=== PATIENT | female | born 1955 | race Caucasian/White ===

== ENCOUNTER → 2019-07-30 | Outpatient (CLI) | payer BC ==
[~2019-07-30] MED LIST: AZELASTINE137 MCG/0.; BUDE6HFA; CEPH500 PO; COMBIVENT RESPIM4 GM IH; Flonase 0.05% N16 GM; HYDACE5 PO; Hydromet Syrup473 ML PO; LORPSEER24 PO; MONTELUKAST SOD10 MG PO; OMEP40CA12 PO; PRED20 PO; VAGIFEM10 MCG; VITAMIN D31000 UNIT PO; Ventolin Soln3 ML INH
[2019-07-30 12:52] LABS: BASOPHILS ABSOLUTE AUTO 0.07 K/mm3 (0.00-0.23); BASOPHILS PERCENT AUTO 1 % (0-2); EOSINOPHILS ABSOLUTE AUTO 0.07 K/mm3 (0.00-0.68); EOSINOPHILS PERCENT AUTO 1 % (0-6); Hematocrit 43.4 % (33.0-51.0); Hemoglobin 14.6 g/dL (11.5-16.0); IMMATURE GRAN ABSOLUTE AUTO 0.03 K/mm3 (0.00-0.10); IMMATURE GRAN PERCENT AUTO 1 % (0-1); LYMPHOCYTES ABSOLUTE AUTO 1.67 K/mm3 (0.84-5.20); LYMPHOCYTES PERCENT AUTO 26 % (21-46); MONOCYTES ABSOLUTE AUTO 0.48 K/mm3 (0.16-1.47); MONOCYTES PERCENT AUTO 8 % (4-13); Mean Corpuscular HGB 31.3 pg (26.0-34.0); Mean Corpuscular HGB Conc 33.6 g/dL (31.5-36.5); Mean Corpuscular Volume 93 fL (80-100); Mean Platelet Volume 11.3 fL (9.1-12.4); NEUTROPHILS ABSOLUTE AUTO 4.09 K/mm3 (1.96-9.15); NEUTROPHILS PERCENT AUTO 64 % (41-73); Platelet Count 147 K/mm3 (150-400); RDW Coefficient Variation 12.2 % (11.7-14.2); RDW Standard Deviation 41.7 fL (35.1-46.3); Red Blood Cell Count 4.66 M/mm3 (3.80-5.20); White Blood Cell Count 6.41 K/mm3 (4.00-11.30)
[2019-07-30 13:26] LABS: Alanine Aminotransfer (ALT/SGP 20 U/L (12-78); Albumin, Blood 3.9 g/dL (3.4-5.0); Albumin/Globulin Ratio 1.1 (0.8-1.8); Alk Phos 58 U/L (50-136); Anion Gap 2 mmol/L (6-16); Aspartate Aminotrans (AST/SGOT 16 U/L (12-37); Bilirubin, Total 0.5 mg/dL (0.1-1.0); Blood Urea Nitrogen 15 mg/dL (8-24); Bun/Creatinine Ratio 17.3 (12.0-20.0); CO2, Blood 27 mmol/L (21-32); Calcium, Blood 8.5 mg/dL (8.5-10.1); Chloride, Blood 111 mmol/L (98-108); Creatinine, Blood 0.87 mg/dL (0.40-1.00); Globulin, Blood 3.5 g/dL (2.2-4.0); Glomerular Filtration Rate >60 (60-); Glucose, Blood 105 mg/dL (70-99); Potassium, Blood 3.9 mmol/L (3.5-5.5); Sodium, Blood 140 mmol/L (136-145); Total Protein, Blood 7.4 g/dL (6.4-8.2); Troponin I <0.015 ng/mL (0.000-0.040)
== END ==
LOC: LAB EV 12:48 → LAB SHORT 12:48
PROVIDERS: Emergency Medicine
DX: R68.84 Jaw pain (principal)
CPT/HCPCS: 80053; 84484; 85025

== ENCOUNTER → 2021-10-24 | Outpatient (CLI) | payer OTHER ==
[2021-10-24 14:14] LABS: Calcium, Blood 8.7 mg/dL (8.5-10.1); Creatinine, Blood 1.1 mg/dL (0.40-1.00); Potassium, Blood 4.3 mmol/L (3.5-5.5)
== END ==
LOC: LAB SHORT 13:52
PROVIDERS: Chiropractor
DX: R82.998 Other abnormal findings in urine (principal); R10.9 Unspecified abdominal pain
CPT/HCPCS: 80048; 87086

== ENCOUNTER → 2022-04-01 | Outpatient (CLI) | payer OTHER ==
[~2022-04-01] MED LIST changes: +Norco 5-325 Ta1 EACH PO
[2022-04-01 16:00] LABS: BASOPHILS ABSOLUTE AUTO 0.07 K/mm3 (0.00-0.23); BASOPHILS PERCENT AUTO 1 % (0-2); EOSINOPHILS PERCENT AUTO 1 % (0-6); Hematocrit 38.6 % (33.0-51.0); Hemoglobin 13.1 g/dL (11.5-16.0); IMMATURE GRAN ABSOLUTE AUTO 0.03 K/mm3 (0.00-0.10); IMMATURE GRAN PERCENT AUTO 0 % (0-1); LYMPHOCYTES ABSOLUTE AUTO 1.37 K/mm3 (0.84-5.20); LYMPHOCYTES PERCENT AUTO 16 % (21-46); MONOCYTES ABSOLUTE AUTO 0.48 K/mm3 (0.16-1.47); MONOCYTES PERCENT AUTO 6 % (4-13); Mean Corpuscular HGB 33.2 pg (26.0-34.0); Mean Corpuscular HGB Conc 33.9 g/dL (31.5-36.5); Mean Corpuscular Volume 98 fL (80-100); Mean Platelet Volume 9.1 fL (9.1-12.4); NEUTROPHILS ABSOLUTE AUTO 6.75 K/mm3 (1.96-9.15); NEUTROPHILS PERCENT AUTO 77 % (41-73); Platelet Count 311 K/mm3 (150-400); RDW Coefficient Variation 12.1 % (11.7-14.2); RDW Standard Deviation 43.8 fL (35.1-46.3); Red Blood Cell Count 3.94 M/mm3 (3.80-5.20)
[2022-04-01 16:11] LABS: Albumin, Blood 4.4 g/dL (3.4-5.0); Albumin/Globulin Ratio 1.4 (0.8-1.8); Bilirubin, Direct 0.2 mg/dL (0.0-0.3); Bilirubin, Indirect 0.4 mg/dL (0.1-0.7); Bilirubin, Total 0.6 mg/dL (0.1-1.0); Bun/Creatinine Ratio 9.1 (12.0-20.0); Calcium, Blood 9.3 mg/dL (8.5-10.1); Creatinine, Blood 1.1 mg/dL (0.40-1.00); Globulin, Blood 3.1 g/dL (2.2-4.0); Potassium, Blood 4.1 mmol/L (3.5-5.5); Total Protein, Blood 7.5 g/dL (6.4-8.2)
== END | disposition home or self-care (01) ==
LOC: LAB SHORT 15:56 → LAB 15:56
PROVIDERS: Family Medicine
DX: R19.00 Intra-abdominal and pelvic swelling, mass and lump, unspecified site (principal)
CPT/HCPCS: 80053; 82248; 85025

== ENCOUNTER → 2022-04-17 | Outpatient (CLI) | payer OTHER ==
[~2022-04-17] MED LIST changes: +ALBU2.5V5 INH; +ERGO400 PO; +FENTANYL1 EA10 TOP; +OMEP20ER PO; -OMEP40CA12 PO; -VITAMIN D31000 UNIT PO; -Ventolin Soln3 ML INH
== END | disposition home or self-care (01) ==
LOC: LAB SHORT 13:24 → LAB 13:24
DX: N39.0 Urinary tract infection, site not specified (principal)
CPT/HCPCS: 87077; 87086; 87186

== ENCOUNTER 2022-04-27 07:28 | Day surgery (SDC) | payer OTHER ==
[~2022-04-27] VITALS: Ht 172.7 cm; Wt 88.0 kg
--- NOTE | 2022-04-27 12:22 | NUR ---
1100 S/P MEDIPORT PLACEDMENT. VSS, PT C/O RIGHT NECK INCISION PAIN. 11/[address] CHAVEZ FOR PAIN MED ORDER.RT NECK AND MEDIPORT INC DRY AND INTACT WITH 2X2 HEAVENLY AND OPSITE. PO F;UIDS AND JELLO GIVEN, YAMILEX WELL. DAUGHTER AT BEDSIDE 1140 UP TO BEDSIDE COMODE FOR BOWEL MOVMENT. HAVING SIGNIFICANT RECTAL PAIN FROM RECTAL MASS. 1200 DC HOME TO CAR VIA W/C
== END 2022-04-27 22:51 | disposition home or self-care (01) ==
LOC: ORSCMMR 07:28 → ORD 09:00 → ORSCMMR 09:00 → ORSCSDS 09:00 → ORSCMMR 22:51
PROVIDERS: Surgery
PROC: 0JH60WZ Insertion of Totally Implantable Vascular Access Device into Chest Subcutaneous Tissue and Fascia, Open Approach (ICD-10-PCS; principal; 2022-04-27 09:30)
DX: C20 Malignant neoplasm of rectum (principal); J45.909 Unspecified asthma, uncomplicated; K21.9 Gastro-esophageal reflux disease without esophagitis; N18.9 Chronic kidney disease, unspecified; Z79.899 Other long term (current) drug therapy
CPT/HCPCS: 77001; A9270; C1788; J0690; J1642; J2250; J2704; J2795; J3010; J7120

== ENCOUNTER → 2022-05-13 | Outpatient (CLI) | payer OTHER | LOC: LAB 15:23 → LAB SHORT 15:23 | DX: R30.0 Dysuria (principal) | CPT/HCPCS: 87086 ==

== ENCOUNTER 2022-12-24 10:33 | Day surgery (SDC) | payer OTHER ==
[~2022-12-24] VITALS: Ht 170.2 cm; Wt 75.8 kg
[~2022-12-24 10:33] MED LIST changes: -FENTANYL1 EA10 TOP; +FENTANYL1 EAC7 TOP; +METO10 PO; +Ondansetron Odt8 MG MM
[2022-12-24 13:11] VITALS: BP 119/62
== END 2022-12-24 13:00 | disposition home or self-care (01) ==
LOC: ORSCSDS 10:33
PROVIDERS: Surgery
PROC: 0DJD8ZZ Inspection of Lower Intestinal Tract, Via Natural or Artificial Opening Endoscopic (ICD-10-PCS; principal; 2022-12-24 12:00)
DX: C20 Malignant neoplasm of rectum (principal); J45.909 Unspecified asthma, uncomplicated; K21.9 Gastro-esophageal reflux disease without esophagitis; Z79.899 Other long term (current) drug therapy
CPT/HCPCS: J2704; J7120

== ENCOUNTER 2023-02-15 00:13 | Day surgery (SDC) | payer OTHER | END 2023-02-15 22:48 | disposition home or self-care (01) | LOC: WOUND 00:13 | DX: Z48.00 Encounter for change or removal of nonsurgical wound dressing (principal); Z88.2 Allergy status to sulfonamides; Z93.3 Colostomy status; Z85.048 Personal history of other malignant neoplasm of rectum, rectosigmoid junction, and anus | CPT/HCPCS: A9270 ==

== ENCOUNTER 2024-07-20 07:53 | Day surgery (SDC) | payer OTHER ==
[~2024-07-20] VITALS: Ht 170.2 cm; Wt 87.7 kg
[~2024-07-20 07:53] MED LIST changes: +Lactated Ringer's 1,000 ML IV ONE; +propofoL 40 ML IV ONE
[2024-07-20] MEDS ORDERED: Lactated Ringer's 1,000 ML IV ONE (08:16)
[2024-07-20] MEDS ORDERED: NASACORT10.8 ML (08:30)
[2024-07-20] MEDS ORDERED: XYZAL5 MG (08:31)
[2024-07-20] MEDS ORDERED: GUAI600T33 PO (08:32)
[2024-07-20 10:40] VITALS: BP 96/66
== END 2024-07-20 10:42 | disposition home or self-care (01) ==
LOC: ORSCSDS 07:53
DX: Z85.048 Personal history of other malignant neoplasm of rectum, rectosigmoid junction, and anus (principal); Z90.49 Acquired absence of other specified parts of digestive tract; D12.0 Benign neoplasm of cecum; D12.3 Benign neoplasm of transverse colon; D12.4 Benign neoplasm of descending colon; Z93.3 Colostomy status; K63.89 Other specified diseases of intestine; J45.909 Unspecified asthma, uncomplicated; K21.9 Gastro-esophageal reflux disease without esophagitis; N18.2 Chronic kidney disease, stage 2 (mild); Z79.899 Other long term (current) drug therapy
CPT/HCPCS: 88305; J2704; J7120

== ENCOUNTER 2024-12-25 06:07 | Day surgery (SDC) | payer OTHER ==
[~2024-12-25] VITALS: Ht 170.2 cm; Wt 86.4 kg
[2024-12-25] VITALS (13 sets, daily range): BP systolic 100–150; BP diastolic 51–84
[~2024-12-25 06:07] MED LIST changes: +ALCALAK PO; +CAPE500 PO; +COMBIVENT; +ESTRADIOL PO; +GUAI600T33 PO; -Lactated Ringer's 1,000 ML IV ONE; +NASACORT10.8 ML; +XYZAL5 MG; +ZYRTEC-D ER 51 EACH PO; -propofoL 40 ML IV ONE
[2024-12-25] MEDS ORDERED: Lactated Ringer's 1,000 ML IV SCH (06:20)
[2024-12-25] MEDS ORDERED: CeFAZolin Sodium 2,000 MG in NS 100 ML IV SCH (06:20)
--- NOTE | 2024-12-25 06:38 | NUR ---
PT HAS "SHARP" PAIN THAT SPANS ACROSS THE TOPS OF BOTH SHOULDERS/UPPER BACK. STATES THIS IS HER NORMAL FOR THE LAST FEW MONTHS.
[2024-12-25] MEDS ORDERED: FentaNYL Citrate 50 MCG/ML 2 ML Injection ONE ×3 (07:01→09:43)
[2024-12-25] MEDS ORDERED: propofoL 20 ML IV ONE (07:01)
[2024-12-25] MEDS ORDERED: Sugammadex Sodium 200 MG/2ML SDV (100 MG/ML) ONE (07:01)
[2024-12-25] MEDS ORDERED: Lidocaine HCl 2% 20 ML MDV ONE (07:02)
[2024-12-25] MEDS ORDERED: Ondansetron HCl 2 MG / ML 2ML Vial ONE (07:02)
[2024-12-25] MEDS ORDERED: Dexamethasone Sod Phos 10 MG/ML 1ML VIAL ONE (07:02)
[2024-12-25] MEDS ORDERED: Rocuronium Bromide 10 MG/ML 5ML Injection IV ONE ×2 (07:02→08:14)
[2024-12-25] MEDS ORDERED: Bupivacaine 0.5% HCl 5 MG/ML 30MLVIAL ONE (07:14)
[2024-12-25] MEDS ORDERED: Lidocaine HCl 1% 5 ML SYR INJ ONE (07:25)
[2024-12-25] MEDS ORDERED: Midazolam HCl 1MG / ML 2ML Vial IV PRN (07:25)
[2024-12-25] MEDS ORDERED: Scopolamine Hydrobromide Patch TOP SCH (07:25)
--- NOTE | 2024-12-25 08:09 | NUR ---
12/25/24 0809 Amol Escobar PT WITH COLOSTOMY IN PLACE, APPLIANCE TAKEN OFF, AREA AROUND STOMA CLEANED, ADHESIVE REMOVED, 4X4 AND TEGADERM PLACED OVER STOMA, ABDOMEN PREPPED OVER TEGADERM IN USUAL WAY
[2024-12-25] MEDS ORDERED: Atropine Sulfate 0.4 MG/1 ML Vial ONE (08:15)
[2024-12-25] MEDS ORDERED: HYDROmorphone HCl/Pf 1MG SYR IV PRN (08:25)
[2024-12-25] MEDS ORDERED: Droperidol 5 mg/2 ml Vial IV PRN (08:25)
[2024-12-25] MEDS ORDERED: Metoclopramide HCl 5MG / ML 2ML Vial IV PRN (08:30)
[2024-12-25] MEDS ORDERED: Ondansetron HCl 2 MG / ML 2ML Vial IV PRN (08:30)
[2024-12-25] MEDS ORDERED: FentaNYL Citrate 50 MCG/ML 2 ML Injection IV PRN ×3 (08:30)
[2024-12-25] MEDS ORDERED: HYDROcodone 5-APAP 325 TAB PO PRN (09:40)
[2024-12-25] MEDS ORDERED: HYDROmorphone HCl/Pf 1MG SYR ONE (10:10)
--- NOTE | 2024-12-25 10:40 | NUR ---
PT HAS FOUR INCISION SITES ON ABD COVERED WITH GAUZE AND CLEAR SURGICAL TAPE, INCISION SITES ARE CLEAN, DRY AND INTACT. PT'S OSTOMY BAG IS BACK IN PLACE, BAND AROUND WASTE. PT REQUESTING PO FLUIDS AND FOOD. STATES SHE HAS 4/10 ABD PAIN THAT FEELS "TIGHT". NO NAUSEA. PT TOLERATING PO FLUIDS, REQUESTING FAMILY AT BEDSIDE.
--- NOTE | 2024-12-25 11:34 | NUR ---
Patient up to Ambulate independently. Gait steady. Discharge instructions reviewed with patient. Patient verbalizes understanding. Copy given to patient to take home. Dressing to procedure site clean, dry, intact with no visible drainage, swelling, erythema or bruising noted. Discharged via wheelchair to private car for ride home.ALL BELONGINGS RETURNED TO PT.
== END 2024-12-25 23:00 | disposition home or self-care (01) ==
LOC: ORSCMMR 06:07 → ORD 07:30 → ORSCMMR 23:00
PROVIDERS: Surgery
PROC: 0FT44ZZ Resection of Gallbladder, Percutaneous Endoscopic Approach (ICD-10-PCS; principal; 2024-12-25 07:30)
PROC: 0FB04ZX Excision of Liver, Percutaneous Endoscopic Approach, Diagnostic (ICD-10-PCS; principal; 2024-12-25 07:30)
DX: K80.11 Calculus of gallbladder with chronic cholecystitis with obstruction (principal); D13.4 Benign neoplasm of liver; N18.9 Chronic kidney disease, unspecified; J45.909 Unspecified asthma, uncomplicated; Z85.048 Personal history of other malignant neoplasm of rectum, rectosigmoid junction, and anus; Z93.3 Colostomy status; Z79.899 Other long term (current) drug therapy
CPT/HCPCS: 88304; 88307; A9270; C1729; J0461; J0690; J1100; J1171; J2250; J2405; J2704; J3010; J7120